=== PATIENT | female | born 1980 | race African-American/Black ===

== ENCOUNTER 2019-11-01 15:39 | Emergency (ER) | payer OTHER ==
[~2019-11-01] VITALS: Ht 160 cm; Wt 72.1 kg
--- NOTE | 2019-11-01 16:15 | NUR ---
Patient discharged to home in stable conditon. Written and verbal after care instructions given. Patient verbalizes understanding of instructions.
== END 2019-11-01 16:15 | disposition home or self-care (01) ==
LOC: ER 15:39
DX: J01.90 Acute sinusitis, unspecified (principal); J30.2 Other seasonal allergic rhinitis
CPT/HCPCS: A4663

== ENCOUNTER 2020-01-18 16:15 | Emergency (ER) | payer OTHER ==
[~2020-01-18] VITALS: Ht 160 cm; Wt 72.6 kg
--- NOTE | 2020-01-18 16:28 | NUR ---
ERMD AT BEDSIDE FOR HX AND PHYSICAL
--- NOTE | 2020-01-18 16:34 | NUR ---
Patient discharged to home in stable conditon. Written and verbal after care instructions given. Patient verbalizes understanding of instructions. AMBULATORY W/ STABLE GAIT ALL BELONGINGS W/ PT
[2020-01-18 16:43] VITALS: BP 136/90
== END 2020-01-18 16:40 | disposition home or self-care (01) ==
LOC: ER 16:16
DX: J30.2 Other seasonal allergic rhinitis (principal); M79.89 Other specified soft tissue disorders; Z60.2 Problems related to living alone
CPT/HCPCS: A4663

== ENCOUNTER 2020-01-26 21:51 | Emergency (ER) | payer OTHER ==
[~2020-01-26] VITALS: Ht 160 cm; Wt 72.6 kg
[2020-01-26] MEDS ORDERED: ASPIRIN 325 MG TABLET ONE (22:13)
[2020-01-26] MEDS ORDERED: NITROGLYCERIN 0.4 MG/TAB BOTTLE SL ONE ×2 (22:13→22:15)
[2020-01-26] MEDS ORDERED: ASPIRIN 325 MG TABLET PO ONE (22:15)
[2020-01-26 22:22] LABS: BASOPHILS # (AUTO) 0.1 K/uL (0.0-8.0); BASOPHILS % (AUTO) 0.8 % (0.0-2.0); EOSINOPHILS # (AUTO) 0.1 K/uL (0.0-0.7); HEMATOCRIT 28.2 % (31.2-41.9); HEMOGLOBIN 8.7 g/dL (10.9-14.3); LYMPHOCYTES # (AUTO) 1.6 K/uL (20.0-40.0); LYMPHOCYTES % (AUTO) 25.7 % (20.5-51.5); MEAN CORPUSCULAR HEMOGLOBIN 20.6 uug (24.7-32.8); MEAN CORPUSCULAR HGB CONC 31 g/dL (32.3-35.6); MEAN CORPUSCULAR VOLUME 66.6 fL (75.5-95.3); MONOCYTES # (AUTO) 0.5 K/uL (2.0-10.0); MONOCYTES % (AUTO) 7.7 % (0.0-11.0); NEUTROPHILS # (AUTO) 3.9 K/uL (1.8-8.9); NEUTROPHILS % (AUTO) 63.8 % (38.5-71.5); PLATELET COUNT (AUTO) 379 K/uL (179-408); RED BLOOD CELL COUNT(AUTO) 4.24 MIL/uL (3.63-4.92)
[2020-01-26 22:28] LABS: CREATININE 0.8 mg/dL (0.6-1.3); POTASSIUM 3.8 mmol/L (3.5-5.1)
[2020-01-26 22:40] LABS: BILIRUBIN,DIRECT 0.1 mg/dL (0.0-0.2); BILIRUBIN,TOTAL 0.3 mg/dL (0.2-1.0); TOTAL PROTEIN, SERUM 7.8 g/dL (6.4-8.2)
[2020-01-26 22:50] LABS: EOSINOPHILS % (MANUAL) 2 % (0-8); LYMPHOCYTES % (MANUAL) 14 % (20-40); MONOCYTES % (MANUAL) 14 % (2-10); NEUTROPHILS % (MANUAL) 70 % (42-75)
--- NOTE | 2020-01-26 23:00 | NUR ---
Pt ambulated in ER for c/o midsternal chest pain x 20 minutes, nonradiating. Pt denies any medical hx. Pt is A/O x 4 and speaking in complete sentences. Pt placed on monitor, safe environment implemented.
--- NOTE | 2020-01-26 23:30 | NUR ---
Per Dr. Dsouza, pt to remain in department for repeat troponin at 0200. Safe environment implemented.
--- NOTE | 2020-01-27 00:05 | NUR ---
Pt states she has hx of anemia, yet has not been taking her iron pills d/t it causing stomach upset.
--- NOTE | 2020-01-27 02:55 | NUR ---
IV removed, catheter intact, pressure applied. No s/s of bleeding. Patient given written and verbal discharge instructions. Patient verbalizes understanding of instructions. Patient is ambulatory with steady gait. Refuses offer of fdc placement.
[2020-01-27 02:56] VITALS: BP 116/78
== END 2020-01-27 02:58 | disposition home or self-care (01) ==
LOC: ER 21:51
DX: R07.89 Other chest pain (principal); Z60.2 Problems related to living alone
CPT/HCPCS: 36415; 70030-TC; 71045; 85025; 85730; 93005; A4663

== ENCOUNTER 2020-06-18 15:39 | Emergency (ER) | payer OTHER ==
--- NOTE | 2020-06-18 15:51 | NUR ---
NOT IN WAITING ROOM WHEN CALLED IN FOR TRIAGE
[2020-06-19] MEDS ORDERED: LIDOCAINE 2% (UROJET) 10 ML JELLY MM ONE (05:38)
== END 2020-06-18 15:52 | disposition left against medical advice (07) ==
LOC: ER 15:39
DX: Z75.3 Unavailability and inaccessibility of health-care facilities (principal)